=== PATIENT | male | born 1995 | race Caucasian/White ===

== ENCOUNTER → 2018-09-12 | Outpatient (CLI) | payer BC | LOC: CARD 12:23 | PROVIDERS: ATTEND Pediatrics | DX: R07.9 Chest pain, unspecified (principal); I34.0 Nonrheumatic mitral (valve) insufficiency; I27.20 Pulmonary hypertension, unspecified | CPT/HCPCS: 93306 ==

== ENCOUNTER → 2018-12-10 | Outpatient (CLI) | payer BC ==
[2018-12-10 11:50] LABS: BASOPHILS % (AUTO) 0 % (0-10); EOSINOPHILS # (AUTO) 0.1 10^3/uL (0.0-0.3); EOSINOPHILS % (AUTO) 2 % (0-10); HEMATOCRIT 47 % (40-54); HEMOGLOBIN 16.8 G/DL (13.3-17.7); LYMPHOCYTES # (AUTO) 1.2 X 10^3 (1.0-4.0); LYMPHOCYTES % (AUTO) 29 % (12-44); MEAN CORPUSCULAR HEMOGLOBIN 31 PG (25-34); MEAN CORPUSCULAR HGB CONC 36 G/DL (32-36); MEAN CORPUSCULAR VOLUME 87 FL (80-99); MONOCYTES # (AUTO) 0.4 X 10^3 (0.0-1.0); MONOCYTES % (AUTO) 11 % (0-12); NEUTROPHILS # (AUTO) 2.4 X 10^3 (1.8-7.8); NEUTROPHILS % (AUTO) 58 % (42-75); PLATELET COUNT 237 10^3/uL (130-400); RED CELL DISTRIBUTION WIDTH 11.9 % (10.0-14.5); WHITE BLOOD COUNT 4.1 10^3/uL (4.3-11.0)
[2018-12-10 12:17] LABS: ALANINE AMINOTRANSFERASE 38 U/L (0-55); ALBUMIN 4.7 GM/DL (3.2-4.5); ALKALINE PHOSPHATASE 72 U/L (40-136); BILIRUBIN,TOTAL 0.9 MG/DL (0.1-1.0); BUN/CREATININE RATIO 11; CALCIUM 10.1 MG/DL (8.5-10.1); CARBON DIOXIDE 24 MMOL/L (21-32); CHLORIDE 104 MMOL/L (98-107); GFR ESTIMATED > 60; GLUCOSE 103 MG/DL (70-105); POTASSIUM 3.7 MMOL/L (3.6-5.0); SODIUM 139 MMOL/L (135-145); TOTAL PROTEIN 7.8 GM/DL (6.4-8.2)
== END ==
LOC: LAB 11:37
PROVIDERS: ATTEND Pediatrics
DX: F41.1 Generalized anxiety disorder (principal)
CPT/HCPCS: 36415; 80053; 85025

== ENCOUNTER → 2018-12-24 | Outpatient (CLI) | payer BC ==
--- NOTE | 2018-12-24 11:39 | Diagnostic Imaging Report ---
CLINICAL INDICATION: Scrotal mass. EXAM: Ultrasound of scrotum with color Doppler interrogation. COMPARISON: None. FINDINGS: Right testicle: Right testis measures 4.2 cm x 2.4 cm x 2.9 cm . The right testis is homogeneous in echogenicity with no focal mass present. Blood flow is present in right testis on color flow imaging and has normal appearing spectral Doppler waveform. Right epididymis is unremarkable. There is no varicocele. There is a small right hydrocele. There is no testicular torsion. Left testicle: Left testis measures 3.9 cm x 2.3 cm x 2.6 cm. Left testis is homogeneous in echogenicity, with no focal mass present. Blood flow is present in left testis on color flow imaging and has normal appearing spectral Doppler waveform. Left epididymis is unremarkable. There is no varicocele seen. There is a small left hydrocele. There is no testicular portion. Additional findings: None. IMPRESSION: There are small bilateral hydroceles. Otherwise, unremarkable ultrasound of the scrotum. There is no scrotal mass seen. Dictated by: Dictated on workstation # [id number]
== END ==
LOC: RAD 09:25
PROVIDERS: ATTEND Internal Medicine Hematology & Oncology
DX: N43.3 Hydrocele, unspecified (principal); D58.2 Other hemoglobinopathies
CPT/HCPCS: 36415; 76870; 81206

== ENCOUNTER 2019-01-08 15:07 | Outpatient (RCR) | payer BC ==
[2018-12-20 11:48] LABS: BASOPHILS % (AUTO) 1 % (0-10); EOSINOPHILS # (AUTO) 0.1 10^3/uL (0.0-0.3); EOSINOPHILS % (AUTO) 2 % (0-10); HEMATOCRIT 48 % (40-54); HEMOGLOBIN 17.1 G/DL (13.3-17.7); LYMPHOCYTES # (AUTO) 1.2 X 10^3 (1.0-4.0); LYMPHOCYTES % (AUTO) 29 % (12-44); MEAN CORPUSCULAR HEMOGLOBIN 31 PG (25-34); MEAN CORPUSCULAR HGB CONC 36 G/DL (32-36); MEAN CORPUSCULAR VOLUME 88 FL (80-99); MEAN PLATELET VOLUME 10.4 FL (7.4-10.4); MONOCYTES # (AUTO) 0.3 X 10^3 (0.0-1.0); MONOCYTES % (AUTO) 8 % (0-12); NEUTROPHILS # (AUTO) 2.5 X 10^3 (1.8-7.8); NEUTROPHILS % (AUTO) 61 % (42-75); PLATELET COUNT 231 10^3/uL (130-400); RED CELL DISTRIBUTION WIDTH 11.9 % (10.0-14.5)
[2018-12-20 13:21] LABS: ABSOLUTE RETIC # 77 10e9/L (24-90)
[2018-12-20 13:57] LABS: BAND NEUTROPHILS 0 %; BASOPHILS % (MANUAL) 0 %; EOSINOPHILS % (MANUAL) 0 %; LYMPHOCYTES % (MANUAL) 25 %; MONOCYTES % (MANUAL) 7 %; NEUTROPHILS % (MANUAL) 68 %
[2018-12-20 13:58] LABS: RBC MORPH NORMAL
== END 2019-03-20 | disposition home or self-care (01) ==
LOC: ONC 15:07
PROVIDERS: ATTEND Internal Medicine Hematology & Oncology
DX: D75.1 Secondary polycythemia (principal); N50.9 Disorder of male genital organs, unspecified; I10 Essential (primary) hypertension; R19.7 Diarrhea, unspecified; R51 Headache; R53.1 Weakness; R07.9 Chest pain, unspecified; Z80.0 Family history of malignant neoplasm of digestive organs; Z79.899 Other long term (current) drug therapy; Z88.1 Allergy status to other antibiotic agents
CPT/HCPCS: 36415; 81270; 82668; 85007; 85025; 85027; 85045; 99213; 99214